=== PATIENT | male | born 1950 | race Caucasian/White ===

== ENCOUNTER 2017-05-05 13:16 | Day surgery (SDC) | payer OTHER ==
[~2017-05-05 13:16] MED LIST: BUPIVACAINE 0.5% 30 ML SDV ONE; EPINEPHrine 30 MG/30 ML MDV ONE; LIDOCAINE 1% 300 MG/30 ML SDV ONE
[2017-05-05] MEDS ORDERED: LR 1,000 ML IV ONE (13:25)
[2017-05-05] MEDS ORDERED: ceFAZolin 2 GM/DEXTROSE 100 ML IV ONE (13:26)
--- NOTE | 2017-05-05 13:28 | PDHPUP ---
History & Physical Update H&P update statement: This history and physical update is based on an assessment of the patient which was completed after admission or registration (within 24 hours), but prior to the surgery/procedure. RRR CTAB
--- NOTE | 2017-05-05 13:36 | PDANEPAE ---
ANE History of Present Illness 66 yo M here for L shoulder arthroscopy, surgical repair ANE Past Medical History - Cardiovascular History Hx Hypertension: Yes Hx Arrhythmias: No Hx Chest Pain: No Hx Coronary Artery / Peripheral Vascular Disease: No Hx CHF / Valvular Disease: No Hx Palpitations: No - Pulmonary History Hx COPD: No Hx Asthma/Reactive Airway Disease: No Hx Recent Upper Respiratory Infection: No Hx Oxygen in Use at Home: No Hx Sleep Apnea: Yes Sleep Apnea Screening Result - Last Documented: Positive - Neurologic History Hx Cerebrovascular Accident: Yes Neurologic History Comment: hemorrhagic stroke 4-15-no deficits except tires more easily - Endocrine History Hx Diabetes: No - Renal History Hx Renal Disorders: No - Liver History Hx Hepatic Disorders: No - Neurological & Psychiatric Hx Hx Neurological and Psychiatric Disorders: No - Cancer History Hx Cancer: No - Congenital Disorder History Hx Congenital Disorders: No - GI History Hx Gastrointestinal Disorders: No Gastrointestinal History Comment: GERD-on Zyrtec - Other Health History Other Health History: L rotator cuff tear. R hand healing abrasion - Chronic Pain History Chronic Pain: Yes (L shoulder) - Surgical History Prior Surgeries: tonsillectomy-child. hernia- child ANE Review of Systems Review of Systems: - Exercise capacity METS (RN): 4 METS ANE Patient History - Allergies Allergies/Adverse Reactions: No Known Allergies Allergy (Verified 05/03/17 10:11) - Home Medications Home Medications: Acyclovir 400 mg PO BID 10/02/14 [Last Taken 10/26/14 08:00] Flexeril 05/03/17 [Last Taken Unknown] IBUPROFEN 05/03/17 [Last Taken 05/03/17 07:00] ZYRTEC 05/03/17 [Last Taken Unknown] - NPO status NPO Status: no food or drink >8 hours NPO Since - Liquids (Date): 05/05/17 NPO Since - Liquids (Time): 11:00 NPO Since - Solids (Date): 05/04/17 NPO Since - Solids (Time): 19:00 - Anes Hx Anes Hx: no prior problems - Smoking Hx Smoking Status: Former smoker - Alcohol Use Alcohol Use: Occasionally - Family Anes Hx Family Anes Hx: none ANE Labs/Vital Signs - Vital Signs Height: 177.8 cm Weight: 86.183 kg ANE Physical Exam - Airway Neck exam: FROM Mallampati Score: Class 2 Mouth exam: normal dental/mouth exam - Pulmonary Pulmonary: no respiratory distress, clear to auscultation - Cardiovascular Cardiovascular: regular rate and rhythym - ASA Status ASA Status: II ANE Anesthesia Plan Anesthesia Plan: general endotracheal anesthesia Regional Anesthesia: interscalene BP NB
[2017-05-05] MEDS ORDERED: MIDAZOLAM 2 MG/2 ML VIAL IVP ONE (13:37)
[2017-05-05] MEDS ORDERED: PROPOFOL 200 MG/20 ML VIAL ONE ×2 (13:49)
[2017-05-05] MEDS ORDERED: fentaNYL 100 MCG/2 ML INJ ONE (13:49)
[2017-05-05] MEDS ORDERED: clonIDINE 1 MG/10 ML VIAL EP ONE (13:52)
[2017-05-05] MEDS ORDERED: ROPIVACAINE HCL 150 MG/30 ML INJ ONE (13:52)
[2017-05-05] MEDS ORDERED: LIDO/EPI 1% **for epidural** 10 ML SDV ONE (13:55)
[2017-05-05] MEDS ORDERED: LIDOCAINE 2% 100 MG/5 ML SYR ONE (13:56)
[2017-05-05] MEDS ORDERED: EPINEPHrine 30 MG/30 ML MDV ONE (14:45)
[2017-05-05] MEDS ORDERED: LIDOCAINE 1% 300 MG/30 ML SDV ONE (14:45)
[2017-05-05] MEDS ORDERED: fentaNYL 100 MCG/2 ML INJ IVP PRN (17:07)
[2017-05-05] MEDS ORDERED: HYDROmorphONE/DILAUDID 1 MG/ML INJ IVP PRN (17:07)
[2017-05-05] MEDS ORDERED: NALOXONE HCL 0.4 MG/ML INJ IVP PRN (17:07)
--- NOTE | 2017-05-05 17:08 | POSTANESTH ---
Post Anesthetic Evaluation Cardiovascular Status: Normal, Stable, Similar to Pre-Op Cond Respiratory Status: Normal, Stable, Similar to Pre-op Cond. Level of Consciousness/Mental Status: Can Participate in Eval, Alert and Oriented Pain Control: Adequate, Prn Tx Ordered Nausea/Vomiting Control: Adequate, Prn Tx Ordered Complications Possibly Related to Anesthesia: None Noted
[2017-05-05] MEDS ORDERED: ONDANSETRON 4 MG/2 ML VIAL ONE ×2 (17:24→18:10)
[2017-05-05] MEDS: ONDANSETRON 4 MG/2 ML VIAL IVP PRN ×2 (17:26→18:16)
[2017-05-05 17:32] VITALS: PULSE 70
[2017-05-05 17:46] VITALS: RESP 16
[2017-05-05 18:21] VITALS: BP 99/64; TEMP 97.9; O2SAT 86
--- NOTE | 2017-05-07 15:46 | GOP ---
[f rep st] OPERATIVE REPORT PATIENT: TALA DUEÑAS DATE OF SERVICE: 05/05/17 PATIENT DATE OF : 1950 SURGEON: Canelo Dial M.D. VISUAL MERCHANDISING ASSISTANT: Griselda Stallworth PA-C Mrs. Miller assistance was medically necessary for patient positioning and the retraction of vital structures. ANESTHESIA: General PRE-OPERATIVE DIAGNOSES: Left shoulder anteroinferior labral tear (ICD-10 code M25.31 shoulder instability) Left shoulder anterior dislocation (ICD-10 code S43.016 anterior dislocation of shoulder) Left shoulder SLAP tear (ICD-10 code S43.439A SLAP tear) Left shoulder long head of bicpes tendon tear (ICD-10 code S46.109 long head of biceps tendon tear) Left shoulder biceps tenosynovitis (ICD-10 code M75.20 bicipital tendinitis of shoulder) Left shoulder subacromial impingement (ICD-10 code M75.50 bursitis of shoulder) Left shoulder acromioclavicular joint arthritis (ICD-10 code M13.119 acromioclavicular joint arthritis) Left shoulder partial thickness rotator cuff tear (ICD-10 code M75.110 incomplete rotator cuff tear) POST-OPERATIVE DIAGNOSES: Left shoulder anteroinferior labral tear (ICD-10 code M25.31 shoulder instability) Left shoulder anterior dislocation (ICD-10 code S43.016 anterior dislocation of shoulder) Left shoulder SLAP tear (ICD-10 code S43.439A SLAP tear) Left shoulder long head of bicpes tendon tear (ICD-10 code S46.109 long head of biceps tendon tear) Left shoulder biceps tenosynovitis (ICD-10 code M75.20 bicipital tendinitis of shoulder) Left shoulder subacromial impingement (ICD-10 code M75.50 bursitis of shoulder) Left shoulder acromioclavicular joint arthritis (ICD-10 code M13.119 acromioclavicular joint arthritis) Left shoulder partial thickness rotator cuff tear (ICD-10 code M75.110 incomplete rotator cuff tear) OPERATIVE PROCEDURES: CPT code 67289 Left shoulder long head of biceps tenotomy CPT code 85501 Left shoulder SLAP repair CPT code 41655 Left shoulder rin-inferior labral repair and capsulorraphy ( Bankart procedure) CPT code 20580 -- Left shoulder anterior capsulorraphy CPT code 21405 Left shoulder arthroscopic subacromial decompression CPT code 24268 -- Left shoulder arthroscopic debridement, extensive CPT code 25130 Left shoulder arthroscopic distal clavicle excision CPT code 53354 Left shoulder arthroscopic rotator cuff repair EBL: 4cc COMPLICATIONS: None IMPLANTS: Two Arthrex 2.9mm biocomposite push lock anchors with #2 Fiber Stick for labral repair and capsulorrhaphy, one Arthrex 5.5mm biocomposite corkscrew anchor with three #2 Fiber Wires for rotator cuff repair BRIEF CLINICAL NOTE: This is a very pleasant 66 year old male with a significant history for a left shoulder Bankart lesion, SLAP tear, subacromial impingement, AC joint arthritis, biceps tendinitis and partial tear, and a full thickness rotator cuff tear. As such, I discussed the risks, benefits, alternatives, and complications associated with both non-operative (specifically , observation, activity modifications, PT, NSAIDs, injections) and operative ( specifically, left shoulder arthroscopy with labral repair and/or capsulorraphy , long head of biceps tenotomy, subacromial decompression, distal clavicle excision, and rotator cuff repair) forms of treatment. The patient fully understands the risks, benefits, alternatives, and complications associated with both forms of treatment and wishes to proceed with operative intervention as outlined above. The patient has also signed the informed consent form for surgery. OPERATIVE NOTE: On the day of surgery, all of the patients questions were answered. The patient was then transferred from the pre-operative area into the operating room and a formal, Time-Out procedure was performed. The patient was identified by name, medical record number, social security number, and date of . In addition, the patients left upper extremity was identified as the correct portion of the patients body for surgery with the patients left shoulder being identified as the correct portion of that extremity for surgery. The anesthesia team administered pre-operative antibiotics for prophylaxis. The patient was then transferred to the operating room table and placed in the beach chair position while padding all bony prominences. The left upper extremity was then prepped and draped in the normal sterile fashion. A sterile marking pen was then utilized to nahid out standard posterior, lateral , and anterior arthroscopic portal incisions. Next, an 18-gauge spinal needle was utilized to localize the glenohumeral joint and the joint was insufflated with 60cc of a 50:50 mixture of 1% lidocaine with 1:200,000 components of epinephrine and normal saline. Following this, an 11-blade was utilized to make the posterior portal incision. The blunt obturator and arthroscopic cannula was then advance through the posterior portal incision into the glenohumeral joint. The arthroscope was then inserted and the shoulder was brought into external rotation. Next, an 18-gauge spinal needle was utilized to create the rin-superior portal with an outside-in technique. A large [employer] corckscrew cannula was then inserted through the anterior portal incision. At this point, a diagnostic arthroscopy was performed in the glenohumeral space. The following structures were identified and examined with the following findings: Glenohumeral diagnostic arthroscopy Glenoid: intact Humeral head: intact Glenoid labrum Anterior labrum: complete detachment from 10 oclock to 6 oclock Superior labrum: complete detachment from 10 oclock to 6 oclock Posterior labrum: intact Inferior labrum: complete detachment from 10 oclock to 6 oclock Biceps tendon: partial tearing and tendinitis Glenohumeral ligaments: SGHL: intact MGHL: intact AIGHL: detachment from anterior glenoid PIGHL: intact Undersurface of rotator cuff: Subscapularis: intact Supraspinatus: mild undersurface fraying Infraspinatus: intact The cautery wand was then inserted through the rin-superior portal and the long head of biceps tendon was released off of the supraglenoid tubercle. Next , a mid-glenoid portal was created utilizing an outside-in technique. A large Arthrex Corkscrew cannula was inserted. The Arthrex suture lasso was then inserted through the mid glenoid portal and a segment of the rin-inferior capsule as well as the rin-inferior labrum was captured utilizing the suture lasso and a #2 Fiber stick was then advanced through the lasso device and was retrieved through the rin-superior portal. Both strands of the FiberWire were then brought back through the mid glenoid portal. The drill guide for the 2.9-mm Push Lock anchor was then advanced through the mid glenoid portal and the drill was then utilized to create a ship's pilot hole in the glenoid at the 6 o' clock position. Following this, the two Fiber Stick suture tails were then threaded through the tip of a 2.9-mm Push Lock anchor. The anchor was then advanced into the pre-drilled hole. The FiberWire suture was then utilized to tighten the repair and the anchor was then advanced into the ship's pilot hole. Following this, the exiting suture strands were then cut. This first anchor provided for an excellent re-approximation of the rin-inferior labrum as well as a capsulorrhaphy along the rin-nferior aspect of the joint. Following this, one additional 2.9 mm PushLock anchor was inserted utilizing similar technique at the 10 o'clock position. Following this, the repair was tested with a 3mm 90-degree probe. Testing demonstrated an excellent repair of all torn portions of the anterior labrum as well as appropriate tension of the rin-inferior capsule. The arthroscope was then withdrawn from the glenohumeral joint and re-directed into the subacromial space. An 18-gauge spinal needle was used to create a straight lateral portal with an outside-in technique. A large Arthrex corkscrew cannula was then inserted through the lateral portal incision. The 4.0mm aggressive cutter and the cautery wand were utilized to excise the subacromial-subdeltoid bursa. At this point, a diagnostic arthroscopy was performed in the subacromial space. The following structures were identified and examined with the following findings: Subacromial space diagnostic arthroscopy Subacromial / subdeltoid bursa: hypertrophic and inflamed Acromion: undersurface spurring Coracoacromial ligament: intact Acromioclavicular joint: undersurface spurring Bursal surface of rotator cuff muscles: Supraspinatus: high-grade partial bursal-sided tear Infraspinatus: intact Following this, the 4.0mm barrel lili was utilized to perform both an acromioplasty as well as an arthroscopic distal clavicle excision. This provided for an excellent subacromial decompression. The torn edge of the rotator cuff was then thoroughly debrided with the 4.0mm aggressive cutter. The rotator cuff footprint was also debrided with both the aggressive cutter and the barrel lili. Next, the punch for the Arthrex biocomposite 5.5mm corkscrew anchor was advanced percutaneously and positioned along the medial border of the footprint. The punch was then advanced into the bone and removed and the anchor was then placed. Each of the six strands was then threaded through the cuff with the [employer] suture passer through the lateral portal to create three horizontal mattress sutures. Each suture pair was then sequentially tensioned and tied. The tails from all three suture pairs were then cut. Next, the arm was brought through internal rotation, external rotation, adduction and abduction. All motions demonstrated an excellent repair of the cuff to the footprint. Meticulous hemostasis was obtained in the subacromial space with the cautery wand. The arthroscope and all instruments were then removed from the joint. All wounds were then copiously irrigate with sterile normal saline. The subcutaneous plane was re-approximated with 3-0 vicryl sutures and the skin was re-approximated with 4-0 moncryl. The skin was then cleaned with sterile normal saline and dried. Dermabond was then applied to all of the incisions followed by a Xeroform gauze dressing, a dry sterile dressing, and an occlusive tegaderm dressing. The arm was then placed into a sling and swathe. The patient was reversed from anesthesia and transferred from the operating room table onto the post-operative [facility] transferred from the operating room to the PACU in stable condition. POST-OPERATIVE PLAN: The patient will remain in the current dressing and sling for the next 2 weeks. The patient will follow-up in 2 weeks for a wound check and initiation of gentle forearm, elbow, and shoulder ROM exercises. /[id number]/MODL MTDD
== END 2017-05-05 19:00 | disposition home or self-care (01) ==
LOC: FSGY 13:16
PROVIDERS: ATTEND Orthopaedic Surgery Hand Surgery
PROC: 0MN24ZZ Release Left Shoulder Bursa and Ligament, Percutaneous Endoscopic Approach (ICD-10-PCS; principal; 2017-05-05 14:30)
PROC: 0MB24ZZ Excision of Left Shoulder Bursa and Ligament, Percutaneous Endoscopic Approach (ICD-10-PCS; principal; 2017-05-05 14:30)
PROC: 0LS24ZZ Reposition Left Shoulder Tendon, Percutaneous Endoscopic Approach (ICD-10-PCS; principal; 2017-05-05 14:30)
PROC: 0MM24ZZ Reattachment of Left Shoulder Bursa and Ligament, Percutaneous Endoscopic Approach (ICD-10-PCS; principal; 2017-05-05 14:30)
PROC: 0LQ24ZZ Repair Left Shoulder Tendon, Percutaneous Endoscopic Approach (ICD-10-PCS; principal; 2017-05-05 14:30)
DX: S43.432A Superior glenoid labrum lesion of left shoulder, initial encounter (principal); M75.41 Impingement syndrome of right shoulder; M75.22 Bicipital tendinitis, left shoulder; M75.112 Incomplete rotator cuff tear or rupture of left shoulder, not specified as traumatic; M25.312 Other instability, left shoulder; M75.50 Bursitis of unspecified shoulder; M13.112 Monoarthritis, not elsewhere classified, left shoulder; X50.0XXA Overexertion from strenuous movement or load, initial encounter; W55.19XA Other contact with horse, initial encounter; Z86.73 Personal history of transient ischemic attack (TIA), and cerebral infarction without residual deficits; K21.9 Gastro-esophageal reflux disease without esophagitis; Z87.891 Personal history of nicotine dependence
CPT/HCPCS: C1713; J0690; J0735; J2001; J2250; J2405; J2704; J2795; J3010

== ENCOUNTER 2017-09-12 10:06 | Observation (INO) | payer OTHER ==
--- NOTE | 2017-09-12 10:23 | CPEKG ---
Heart Rate: 98 RR Interval: 612 P-R Interval: 144 QRSD Interval: 90 QT Interval: 360 QTC Interval: 460 P [place]: 55 QRS [place]: 22 T Wave [place]: 71 EKG Severity - BORDERLINE ECG - EKG Impression: SINUS RHYTHM EKG Impression: ATRIAL PREMATURE COMPLEX EKG Impression: BORDERLINE T WAVE ABNORMALITIES Electronically Signed By: Lupe Granado 12-Sep-2017 17:19:29
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
[2017-09-12 10:30] LABS: PLATELET COUNT 260 10^3/uL (150-400)
[2017-09-12 10:44] LABS: CREATINE KINASE 308 IU/L (0-224)
[2017-09-12] MEDS ORDERED: IOPAMIDOL (ISOVUE 370) 100 ML BTL IV ONE (13:17)
[2017-09-12] MEDS ORDERED: ONDANSETRON 4 MG/2 ML VIAL IVP PRN (15:17)
[2017-09-12] MEDS ORDERED: ACETAMINOPHEN 325 MG TAB PO PRN (15:17)
[2017-09-12] MEDS ORDERED: LORazepam 2 MG/ML INJ IVP PRN (15:17)
[2017-09-12] MEDS ORDERED: ONDANSETRON DISINTEGRATING 4 MG TAB PO PRN (15:17)
--- NOTE | 2017-09-12 15:25 | PDGENHP ---
History and Physical - Chief Complaint found down - History of Present Illness 67 yo male with h/o hemorrhagic CVA presents to ED via EMS after being found down. He does not recall the events leading up to his transfer to the ED. He recalls scraping ice off his car and drove 6 blocks from [facility] to his office. He remembers finding a parking space, then he woke up in the ED. He was told someone found him on the ground outside the car. He denies any symptoms such as lightheadedness, dizziness, headache or vision changes. No CP or SOB. No abdominal pain or changes in his bowel or bladder habits. He has no prior h/o syncope or seizure. He notes a h/o hemorrhagic stroke in 2013 and is treated for hypertension. He also had a traumatic event with a horse 8 months ago and did not have memory of the event, but had obvious facial / head trauma. A head CT at that time was negative for any acute change, but showed evidence of residual stroke. In the ED, CT brain was negative for acute intracranial abnormality. He was found to be mildly hypoxic and CTA was negative for PE. He is admitted for further management. History Information - Allergies/Home Medication List Allergies/Adverse Reactions: No Known Allergies Allergy (Verified 05/03/17 10:11) Home Medications: Acyclovir 400 mg PO BID 10/02/14 [Last Taken 09/12/17] Cetirizine [ZyrTEC 10 mg (*)] 10 mg PO DAILY #0 05/03/17 [Last Taken 09/12/17] Ascorbic Acid [Vitamin C 500 mg (*)] 2,000 mg PO BID 09/12/17 [Last Taken ] Herbals/Supplements -Info Only 1 ea PO DAILY 09/12/17 [Last Taken Unknown] [place]-3 Fatty Acids [Fish Oil 1000 mg (*)] 1,000 mg PO DAILY 09/12/17 [Last Taken 09/12/17] Omeprazole 20 mg PO DAILY 09/12/17 [Last Taken 09/12/17] I have personally reviewed and updated: family history, medical history, social history, surgical history - Past Medical History CVA, hypertension - Surgical History Additional surgical history: tonsillectomy, hernia repair, rotator cuff and biceps tendon repair left shoulder - Family History Positive for: CAD, father with history of CAD younger than 55 - Social History Smoking Status: Former smoker Alcohol Use: Other (1 beer a day) Drug Use: Marijuana Additional social history: Lives independently alone. Works as a psychotherapist. Review of Systems Review of Systems: ROS: 10pt was reviewed & negative except for what was stated in HPI & below Physical Exam Physical Exam: Temp Pulse Resp BP Pulse Ox 36.8 C 92 18 129/88 H 95 09/12/17 15:09 09/12/17 15:09 09/12/17 15:09 09/12/17 15:09 09/12/17 15:09 O2 (L/minute) 2 Constitutional: no apparent distress Eyes: PERRL Ears, Nose, Mouth, Throat: moist mucous membranes Cardiovascular: regular rate and rhythym Respiratory: no respiratory distress, clear to auscultation Gastrointestinal: normoactive bowel sounds, soft, non-tender abdomen Skin: warm Musculoskeletal: full muscle strength Neurologic: AAOx3 Psychiatric: interacting appropriately Lab Data & Imaging Review 09/12/17 10:21 09/12/17 10:21 WBC 8.17 10^3/uL (3.80-9.50) 09/12/17 10:21 RBC 5.97 10^6/uL (4.40-6.38) 09/12/17 10:21 Hgb 18.9 g/dL (13.7-17.5) H 09/12/17 10:21 Hct 54.4 % (40.0-51.0) H 09/12/17 10:21 MCV 91.1 fL (81.5-99.8) 09/12/17 10:21 MCH 31.7 pg (27.9-34.1) 09/12/17 10:21 MCHC 34.7 g/dL (32.4-36.7) 09/12/17 10:21 RDW 12.7 % (11.5-15.2) 09/12/17 10:21 Plt Count 260 10^3/uL (150-400) 09/12/17 10:21 MPV 9.5 fL (8.7-11.7) 09/12/17 10:21 Neut % (Auto) 49.3 % (39.3-74.2) 09/12/17 10:21 Lymph % (Auto) 37.8 % (15.0-45.0) 09/12/17 10:21 [place] % (Auto) 9.4 % (4.5-13.0) 09/12/17 10:21 Eos % (Auto) 2.4 % (0.6-7.6) 09/12/17 10:21 Baso % (Auto) 0.7 % (0.3-1.7) 09/12/17 10:21 Nucleat RBC Rel Count 0.0 % (0.0-0.2) 09/12/17 10:21 Absolute Neuts (auto) 4.02 10^3/uL (1.70-6.50) 09/12/17 10:21 Absolute Lymphs (auto) 3.09 10^3/uL (1.00-3.00) H 09/12/17 10:21 Absolute Monos (auto) 0.77 10^3/uL (0.30-0.80) 09/12/17 10:21 Absolute Eos (auto) 0.20 10^3/uL (0.03-0.40) 09/12/17 10:21 Absolute Basos (auto) 0.06 10^3/uL (0.02-0.10) 09/12/17 10:21 Absolute Nucleated RBC 0.00 10^3/uL (0-0.01) 09/12/17 10:21 Immature Gran % 0.4 % (0.0-1.1) 09/12/17 10:21 Immature Gran # 0.03 10^3/uL (0.00-0.10) 09/12/17 10:21 Sodium 145 mEq/L (135-145) 09/12/17 10:21 Potassium 4.4 mEq/L (3.5-5.2) 09/12/17 10:21 Chloride 104 mEq/L (97-110) 09/12/17 10:21 Carbon Dioxide 12 mEq/l (22-31) L 09/12/17 10:21 Anion Gap 29 mEq/L (8-16) H 09/12/17 10:21 BUN 13 mg/dL (7-23) 09/12/17 10:21 Creatinine 1.1 mg/dL (0.7-1.3) 09/12/17 10:21 Estimated GFR > 60 09/12/17 10:21 Glucose 109 mg/dL (70-100) H 09/12/17 10:21 Calcium 10.0 mg/dL (8.5-10.4) 09/12/17 10:21 Total Bilirubin 0.9 mg/dL (0.1-1.4) 09/12/17 10:21 Conjugated Bilirubin 0.5 mg/dL (0.0-0.5) 09/12/17 10:21 Unconjugated Bilirubin 0.4 mg/dL (0.0-1.1) 09/12/17 10:21 AST 39 IU/L (17-59) 09/12/17 10:21 ALT 32 IU/L (21-72) 09/12/17 10:21 Alkaline Phosphatase 65 IU/L (38-126) 09/12/17 10:21 Ammonia 17.0 uMOL/L (9.0-30.0) 09/12/17 10:21 Creatine Kinase 308 IU/L (0-224) H 09/12/17 10:21 CK-MB (CK-2) Fraction 3.94 ng/mL (0.00-3.19) H 09/12/17 10:21 CK-MB (CK-2) % 1.3 % (0.0-4.0) 09/12/17 10:21 Creatine Kinase Interp NEGATIVE (NEGATIVE) 09/12/17 10:21 Troponin I < 0.012 ng/mL (0.000-0.034) 09/12/17 10:21 Total Protein 7.9 g/dL (6.3-8.2) 09/12/17 10:21 Albumin 5.1 g/dL (3.5-5.0) H 09/12/17 10:21 Lipase 109 IU/L (23-300) 09/12/17 10:21 Urine Color YELLOW 09/12/17 11:45 Urine Appearance CLEAR 09/12/17 11:45 Urine pH 5.0 (5.0-7.5) 09/12/17 11:45 Ur Specific [place] 1.016 (1.002-1.030) 09/12/17 11:45 Urine Protein NEGATIVE (NEGATIVE) 09/12/17 11:45 Urine Ketones TRACE (NEGATIVE) H 09/12/17 11:45 Urine Blood NEGATIVE (NEGATIVE) 09/12/17 11:45 Urine Nitrate NEGATIVE (NEGATIVE) 09/12/17 11:45 Urine Bilirubin NEGATIVE (NEGATIVE) 09/12/17 11:45 Urine Urobilinogen NEGATIVE EU (0.2-1.0) 09/12/17 11:45 Ur Leukocyte Esterase NEGATIVE (NEGATIVE) 09/12/17 11:45 Urine RBC 1-3 /hpf (0-3) 09/12/17 11:45 Urine WBC 1-3 /hpf (0-3) 09/12/17 11:45 Ur Epithelial Cells NONE SEEN /lpf (NONE-1+) 09/12/17 11:45 Ur Renal Epithelial Cell Cancelled 09/12/17 11:45 Urine Crystals Cancelled 09/12/17 11:45 Ammonium Urate Crystals Cancelled 09/12/17 11:45 Calcium Carbonate Cryst Cancelled 09/12/17 11:45 Calcium Phosphate Cryst Cancelled 09/12/17 11:45 Calcium Oxalate Crystal Cancelled 09/12/17 11:45 Leucine Crystals Cancelled 09/12/17 11:45 Cystine Crystals Cancelled 09/12/17 11:45 Uric Acid Crystals Cancelled 09/12/17 11:45 Triple Phos Crystals Cancelled 09/12/17 11:45 Sulfonamide Crystals Cancelled 09/12/17 11:45 Cholesterol Crystals Cancelled 09/12/17 11:45 Tyrosine Crystals Cancelled 09/12/17 11:45 Bilirubin Crystals Cancelled 09/12/17 11:45 Amorphous Sediment Cancelled 09/12/17 11:45 Urine Bacteria Cancelled 09/12/17 11:45 Epithelial Casts Cancelled 09/12/17 11:45 Fatty Casts Cancelled 09/12/17 11:45 Hyaline Casts 1-5 /lpf (0-1) 09/12/17 11:45 Granular Casts Cancelled 09/12/17 11:45 Waxy Casts Cancelled 09/12/17 11:45 Broad Casts Cancelled 09/12/17 11:45 RBC Casts Cancelled 09/12/17 11:45 WBC Casts Cancelled 09/12/17 11:45 Urine Mucus TRACE /lpf (NONE-1+) 09/12/17 11:45 Urine Trichomonas Cancelled 09/12/17 11:45 Urine Yeast Cancelled 09/12/17 11:45 Urine Sperm Cancelled 09/12/17 11:45 Ur Oval Fat Bodies Cancelled 09/12/17 11:45 Ur Free Fat Droplets Cancelled 09/12/17 11:45 Urine Glucose NEGATIVE (NEGATIVE) 09/12/17 11:45 Urine Comment Cancelled 09/12/17 11:45 Ethyl Alcohol < 10 mg/dL (0-10) 09/12/17 10:21 Visualized and Interpreted EKG results: Yes EKG Interpretation: Positive for: normal sinsus rhythm Assessment & Plan Assessment: Found down - suspect seizure. He is mentating normally now, has no recollection of events. Low CO2 of 12 and slightly elevated CK suggest seizure and his encephalomalacia on CT in region of prior hemorrhagic CVA is a risk factor. -Start keppra -admit to neuro floor with seizure precautions, neurochecks -hold acyclovir for now as there can be neurotoxicity associated this though doubt this is contributory to presentation -neurology consulted, will see in am AGMA - Low CO2 likely secondary to seizure. -hydrate overnight, recheck in am Mild CK elevated - again could be 2/2 seizure -IVF's H/O Left occipital hemorrhagic CVA in 2013 - Pt believes this was hypertensive related. Hypertension - Adequate control, cont current outpt regimen. GERD - cont PPI HSV - cont acyclovir
[2017-09-12] MEDS ORDERED: 1/2 NS 1,000 ML IV SCH (15:30)
[2017-09-12] MEDS: levETIRAcetam 500 MG TAB PO SCH ×2 (17:30→20:23)
--- NOTE | 2017-09-12 17:38 | GCON ---
[f rep st] CONSULTATION NEUROLOGY CONSULT. DATE OF CONSULTATION: 09/12/2017 REFERRING PHYSICIAN: Ana Maria Mckeon MD CHIEF COMPLAINT: Loss of consciousness. 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 Around 3 or 4 years ago, he had a hypertensive hemorrhage in the left occipital lobe. One year ago, he had a significant concussion when working with a horse. He has no small episodes to suggest focal seizures. He takes no medications, prescription or nonprescription, which could provoke seizures, such as Wellbutrin or pain medication now. The last thing he remembers is scraping his car, but he knows he drove to a client's house 6 blocks away or so. He was found apparently down near the intersection of [address] on the sidewalk. He has no clear recollection of any events around this time. The next thing he remembers he was in the emergency department with some musculoskeletal pain in his lower extremities. Head CT showed the old hemorrhagic infarct in the left posterior quadrant. The patient's initial bicarbonate was low. REVIEW OF SYSTEMS: Ten-point review of systems was negative for any provocative factors for seizure, chest pain, shortness of breath, or smaller episodes to suggest ongoing seizure activity. CTA in the ED showed no pulmonary embolism. For home medications, past medical history, social history, family history, please see Dr. Mckeon's H and P. PHYSICAL EXAM: VITAL SIGNS: Blood pressure is 129/88. He is afebrile at 36.8. O2 sats 95%, room air. GENERAL: No acute distress. Very pleasant. NEUROLOGIC: Higher mental function: He is awake and alert and has no aphasia. Cranial nerve exam 2-7 is normal. Motor exam is normal strength throughout. Sensory exam normal to light touch. Coordination is normal. IMPRESSION/PLAN: 1. Loss of consciousness. The patient presents with an episode of loss of consciousness with significant amnesia. 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 He has significant amnesia, had post-event confusion, and low bicarbonate, all to suggest an epileptic seizure. He will be on 90 days of driving restrictions and seizure precautions. He is agreeable. We have initiated Keppra 500 mg twice daily which he will stay on. He will need a prescription upon discharge. I will see him as an outpatient in 2-4 weeks for ongoing care, including further testing, such as EEG, and further neuroimaging. He will likely discharge tomorrow morning if he is stable overnight. We discussed potential risks, benefits, and alternatives of Keppra, including moodiness, depression, and suicidal ideation. He will stay well hydrated on this medication. I will look forward to taking care of the patient as an outpatient. Please do not hesitate to call if you have any questions or if there are any changes in neurologic status with this very pleasant patient. Seventy total minutes floor time reviewing records, imaging, and in direct counseling with the patient. We will sign off and follow up as needed. /[id number]/MODL MTDD
[2017-09-13 00:11] VITALS: O2SAT 92
--- NOTE | 2017-09-13 08:16 | HOSPPROG ---
Hospitalist Progress Note Assessment/Plan: Patient is a 67 y/o male w hx of hemorrhagic CVA. He was transferred to the ED after being found down. He doesn't have any recollection of prior events. Reviewed his care w Dr Schwartz. *likely new diagnosis of a seizure -loss of consciousness + amnesia -keppra bid -no driving for 90 days and seizure restrictions -low CO2 likely indicating he had a seizure -CT of brain was negative for any acute intracranial abnormality *AGMA - Low CO2 likely secondary to seizure. -resolved *right ankle strain -will evaluate xray prior to dc *Mild CK elevated - again could be 2/2 seizure -IVF's *H/O Left occipital hemorrhagic CVA in 2013 - Pt believes this was hypertensive related. *Hypertension - cont current outpt regimen. *GERD - cont PPI *HSV - cont acyclovir *Plan : PT to see, hasn't ambulated much, need to get an ankle xray of right ankle; if all stable; can dc home/ recommendation is for someone to stay with him for next several nights, Subjective: Mathew is feeling well, has some right ankle soreness. Objective: Vital Signs Temp Pulse Resp BP Pulse Ox 36.9 C 63 19 110/72 92 09/13/17 04:00 09/13/17 04:00 09/13/17 04:00 09/13/17 04:00 09/13/17 04:00 Laboratory Results 09/13/17 05:38 09/12/17 09/13/17 09/14/17 05:59 05:59 05:59 Intake Total 1450 Output Total 750 Balance 700 - Physical Exam Constitutional: no apparent distress, appears nourished, not in pain Eyes: PERRL Ears, Nose, Mouth, Throat: hearing normal Cardiovascular: regular rate and rhythym Respiratory: no respiratory distress Skin: warm Neurologic: AAOx3 Psychiatric: interacting appropriately ICD10 Worksheet Patient Problems: Problems Problem Status Onset Hypoxemia Acute Loss of consciousness Acute Intracranial hemorrhage following injury with concussion Acute
[2017-09-13] MEDS ORDERED: PANTOPRAZOLE SODIUM 40 MG TAB PO SCH (09:00)
[2017-09-13] MEDS ORDERED: amLODIPine BESYLATE 5 MG TAB PO SCH (09:00)
[2017-09-13] MEDS ORDERED: CETIRIZINE 10 MG TAB PO SCH (09:00)
[2017-09-13] MEDS ORDERED: ENALAPRIL MALEATE 10 MG TAB PO SCH (09:00)
[2017-09-13 09:06] VITALS: BP 96/72; PULSE 90; RESP 16; TEMP 98.2
[2017-09-13] MEDS: levETIRAcetam 500 MG TAB PO SCH (09:36)
--- NOTE | 2017-09-13 10:31 | NEUROPROG ---
Assessment: 1. Loss of consciousness Please see my initial consultation, essentially we think he had his 1st secondary generalized seizure from underlying previous hemorrhagic stroke. He is stable overnight and has had no further events. I reviewed his care with Hospital Medicine. He will be discharged on Keppra 500 mg twice daily. He was again counseled on potential risks, benefits and alternatives this medication. He will be on 90 days of driving restrictions and seizure precautions. I will see him in the office in 2-4 weeks for further care and testing Subjective: No further events Objective: Vital Signs Temp Pulse Resp BP Pulse Ox 36.8 C 90 16 96/72 L 92 09/13/17 08:00 09/13/17 08:00 09/13/17 08:00 09/13/17 09:37 09/13/17 08:00 Laboratory Results 09/13/17 05:38 09/12/17 09/13/17 09/14/17 05:59 05:59 05:59 Intake Total 1450 Output Total 750 Balance 700 Awake, lucid no aphasia Allergies/Adverse Reactions: No Known Allergies Allergy (Verified 05/03/17 10:11)
--- NOTE | 2017-09-13 14:14 | GDS ---
[f rep st] DISCHARGE SUMMARY DISCHARGE DIAGNOSES: 1. Loss of consciousness, likely new diagnosis of seizure. 2. Anion gap metabolic acidosis. 3. Right ankle strain. 4. Mild elevation of CK. 5. History of left occipital hemorrhagic cerebrovascular accident in 2013. 6. Hypertension. 7. Gastroesophageal reflux disease. 8. Herpes simplex virus. CONSULTATION: Dr. Adan Schwartz. Briefly, the patient is a very nice 67-year-old gentleman, who has a past medical history of a hemorr hagic CVA. He presented to the emergency room after being found down. He has no recollection of the events leading up to his transfer to the emergency department. He recalls scraping ice off his car and drove 6 blocks from [facility] to his office, and parking, then he woke up in the emergency department. He had no chest pain or shortness of breath. He has no history of syncope or seizures. He does have a history of a hemorrhagic stroke in 2013, and is being treated for hypertension. In [facility] ER, he had a CT of the brain that was negative for acute intracranial abnormality. He was found t o be mildly hypoxic. A CTA was performed, was noted to be negative. I reviewed his care with Dr. Sa meghana Schwartz. It is likely that he did indeed have a seizure due to his low CO2 levels and complete amne sanchez. His amnesia has resolved. He will follow up with Dr. Schwartz in the outpatient setting. HOSPITAL COURSE BY PROBLEM: 1. Loss of consciousness. He likely has a new diagnosis of a seizure. He will be on Keppra b.i.d. He is on driving restriction for 90 days and seizure precautions. 2. Anion gap metabolic acidosis, resolved. The low CO2 is likely secondary to seizure. 3. Right ankle strain. X-rays performed, showed nothing acute. I suspect that he may have strained it. An Nathan wrap will be placed on it prior to discharge. 4. Mild elevation of CK. This is secondary from his seizure. 5. History of left occipital hemorrhagic CVA in 2013. This could be the etiology of why he seized. 6. Hypertension, blood pressure is stable. 7. GERD, on PPI. 8. HSV on acyclovir. DISCHARGE CONDITION: Stable. Blood pressure is 96/72, heart rate is 90, respiratory rate 16, O2 sat uration on room air 96%, temperature is 36.8 Celsius. MEDICATIONS AT DISCHARGE: Please see the EMR. DISCHARGE INSTRUCTIONS: 1. Further follow up with Dr. Adan Schwartz. 2. No driving for the next 3 months until cleared by Neurology. 3. Reviewed with him the importance of not being alone in a pool or taking a bath, and recommending someone stay with him for the next several days. /[id number]/MODL
== END 2017-09-13 14:00 | disposition home or self-care (01) ==
LOC: EDUNIT# → F3N 15:03
PROVIDERS: ADMIT Hospitalist; ATTEND Internal Medicine
DX: R55 Syncope and collapse (principal); E87.2 Acidosis; R74.8 Abnormal levels of other serum enzymes; R09.02 Hypoxemia; S93.401A Sprain of unspecified ligament of right ankle, initial encounter; X50.0XXA Overexertion from strenuous movement or load, initial encounter; Y92.410 Unspecified street and highway as the place of occurrence of the external cause; I10 Essential (primary) hypertension; K21.9 Gastro-esophageal reflux disease without esophagitis; R40.2411 Glasgow coma scale score 13-15, in the field [EMT or ambulance]; Z87.891 Personal history of nicotine dependence; Z86.73 Personal history of transient ischemic attack (TIA), and cerebral infarction without residual deficits; Z86.19 Personal history of other infectious and parasitic diseases; Z82.49 Family history of ischemic heart disease and other diseases of the circulatory system
CPT/HCPCS: 70450; 71045; 71275; 72125; 73610; 93005; 93970; 97161; 97165; 97535; 99285; G0378; G8978; G8979; G8987; G8988; Q9967; G0480

== ENCOUNTER → 2017-10-06 | Outpatient (CLI) | payer OTHER | LOC: FIMAGING 18:30 | PROVIDERS: ATTEND Psychiatry & Neurology Neurology | DX: R40.20 Unspecified coma (principal); Z86.59 Personal history of other mental and behavioral disorders; Z86.69 Personal history of other diseases of the nervous system and sense organs ==

== ENCOUNTER → 2017-10-14 | Outpatient (CLI) | payer OTHER ==
--- NOTE | 2017-10-14 15:05 | CPEEG ---
[f rep st] ELECTROENCEPHALOGRAM DATE OF STUDY: STUDY: Four-hour video EEG. INTERPRETATION: This 4-hour video EEG recording is normal. There were no potentially epileptogenic abnormalities present in the recording. During the video EEG monitoring session, the patient did not have any clinical events by report. REPORT: This 4-hour EEG contains 9 Hz alpha activity over the posterior head regions. There was no abnormal activation at rest, during photic stimulation, or hyperventilation. The patient became drow sy and fell asleep during the study. There was no abnormal activation during drowsiness, sleep, or t imes of arousal. The patient did not have any clinical events during the video EEG monitoring iftikhar Patel #: [id number]/MODL
== END ==
LOC: FCPNEURO 07:42
PROVIDERS: ATTEND Psychiatry & Neurology Neurology
DX: R40.20 Unspecified coma (principal)